=== PATIENT | female | born 1955 | race Caucasian/White ===

== ENCOUNTER 2019-09-29 11:52 | Emergency (ER) | payer SELFPAY ==
[~2019-09-29 11:52] MED LIST: Sodium Chloride 0.9% 100 ML BAG ONE
[2019-09-29] MEDS ORDERED: Iopamidol 370 76% 100 ML VIAL ONE (12:29)
[2019-09-29 13:43] LABS: #Basophils 0.1 thou/uL (0.0-0.2); #Eosinphils 0.2 thou/uL (0.0-0.7); #Lymphocytes 1.9 thou/uL (1.20-3.40); #Monocytes 0.7 thou/uL (0.11-0.59); #Neutrophils 8.1 thou/uL (1.40-6.50); %Eosinophils 1.5 % (0.0-10.0); %Lymphocytes 17.4 % (21.0-51.0); %Neutrophils 74.1 % (42.0-75.0); Hemoglobin 13.4 g/dL (12.0-16.0); Mean Corpuscular HGB CONC 30.6 g/dL (32.0-36.0); Mean Corpuscular Hemoglobin 29.7 pg (27.0-31.0); Mean Corpuscular Volume 97.1 fL (78.0-98.0); Mean Platelet Volume 5.2 fL (7.4-10.4); Platelet Count 358 thou/uL (130-400); RBC Distribution Width 11.9 % (11.5-14.5); Red Blood Cell (RBC) Count 4.52 mill/uL (4.20-5.40); White Blood Cell (WBC) Count 10.9 thou/uL (4.8-10.8)
[2019-09-29 13:55] LABS: ALT (SGPT) 19 U/L (8-55); AST (SGOT) 21 U/L (5-34); Albumin 4.7 g/dL (3.4-4.8); Alkaline Phosphatase 69 U/L (40-110); Anion Gap 15 mmol/L (10-20); BUN (Urea Nitrogen) 11 mg/dL (9.8-20.1); Bilirubin, Total 1.3 mg/dL (0.2-1.2); Calc. Creatinine Clearance 0 mL/min (70-130); Calcium 9.9 mg/dL (7.8-10.44); Carbon Dioxide 25 mmol/L (23-31); Chloride 103 mmol/L (98-107); Estimated GFR-MDRD 46; Globulin 3.7 g/dL (2.4-3.5); Glucose 93 mg/dL (80-115); Potassium 4.2 mmol/L (3.5-5.1); Protein, Total 8.4 g/dL (6.0-8.3); Sodium 139 mmol/L (136-145)
--- NOTE | 2019-09-29 14:30 | CT ---
EXAM: CT neck with contrast HISTORY: Swelling of the neck. Evaluate for abscess. COMPARISON: None TECHNIQUE: Multiple contiguous axial images were obtained and a CT of the neck with contrast. Sagitta l and coronal reformats were performed. FINDINGS: Stranding changes seen in the left neck near the angle of the mandible. There is a fluid collection m easuring 2.0 x 1.3 cm in size just beneath the mandible and just anterior to the left submandibular gland. This has an asymmetric rim of enhancement with more prominent thickening anteriorly along this rim. No mucosal abnormality is seen in the nasopharynx, oropharynx, hypopharynx, or subglottic regions. The parapharyngeal spaces are symmetric. No cervical adenopathy is seen. The salivary glands are symmetric without focal abnormality. The thyroid is unremarkable. No osseous abnormality is seen in the cervical spine. No periapical lucency is seen surrounding any o f the mandibular teeth. The visualized intracranial structures are unremarkable. The lung apices are unremarkable. IMPRESSION: Small left neck fluid collection likely represents an abscess.
[2019-09-29] MEDS ORDERED: Sodium Chloride 0.9% 1,000 ML ONE (14:52)
[2019-09-29] MEDS ORDERED: Dexamethasone 10 MG/ML VIAL ONE (15:22)
[2019-09-29] MEDS ORDERED: Clindamycin/D5W 900 mg/50 ml Premix Bag ONE (15:23)
[2019-09-29] MEDS ORDERED: cefTRIAXone\\ROCEPHIN 2 GM VIAL ONE (15:23)
== END 2019-09-29 16:45 | disposition short-term general hospital (02) ==
LOC: MADERS 11:52
DX: K12.2 Cellulitis and abscess of mouth (principal); E03.9 Hypothyroidism, unspecified; E78.5 Hyperlipidemia, unspecified; E78.00 Pure hypercholesterolemia, unspecified; J45.909 Unspecified asthma, uncomplicated; F32.9 Major depressive disorder, single episode, unspecified; Z79.51 Long term (current) use of inhaled steroids
CPT/HCPCS: 36415; 70491; 80053; 83605; 85025; 96365; 96367; 96375; J0696; J1100; J3490; J7050; Q9967